=== PATIENT | female | born 1990 | race Caucasian/White ===

== ENCOUNTER 2017-03-08 08:46 | Outpatient (RCR) | payer OTHER | END 2017-03-09 | LOC: M PT 08:46 | PROVIDERS: ATTEND Physician Assistant | DX: Z51.89 Encounter for other specified aftercare (principal); M25.572 Pain in left ankle and joints of left foot ==

== ENCOUNTER 2017-04-03 08:51 | Outpatient (RCR) | payer OTHER ==
[2017-04-04] MEDS ORDERED: VIGA0.02 (09:25)
[2017-04-04] MEDS ORDERED: Biotin (09:25)
[2017-04-04] MEDS ORDERED: NEXP1IMP (09:25)
[2017-04-04] MEDS ORDERED: ERYT5OPO OS (09:57)
[2017-04-04] MEDS ORDERED: KETO0.5S15 OD (09:58)
== END 2017-04-08 ==
LOC: M PT 08:51
PROVIDERS: ATTEND Physician Assistant
DX: Z51.89 Encounter for other specified aftercare (principal); M25.572 Pain in left ankle and joints of left foot

== ENCOUNTER 2017-04-04 09:16 | Emergency (ER) | payer OTHER ==
[~2017-04-04] VITALS: Ht 172.7 cm; Wt 64.6 kg
[2017-04-04 09:16] VITALS: BP 106/76
[2017-04-04] MEDS ORDERED: VIGA0.02 (09:25)
[2017-04-04] MEDS ORDERED: Biotin (09:25)
[2017-04-04] MEDS ORDERED: NEXP1IMP (09:25)
[2017-04-04] MEDS ORDERED: TETRACAINE 0.5% OPHTH SOLN 4ML OS ONE (09:45)
[2017-04-04] MEDS ORDERED: FLUORESCEIN OPHTH 1 MG STRIP OS ONE (09:45)
[2017-04-04] MEDS ORDERED: ERYT5OPO OS (09:57)
[2017-04-04] MEDS ORDERED: KETO0.5S15 OD (09:58)
[2017-04-04] MEDS ORDERED: KETOROLAC 0.5% OPHTH SOLN OS ONE (10:00)
[2017-04-04] MEDS ORDERED: ERYTHROMYCIN OPHTH OINT OS ONE (10:00)
== END 2017-04-04 10:13 | disposition home or self-care (01) ==
LOC: M ED 09:16
DX: S05.02XA Injury of conjunctiva and corneal abrasion without foreign body, left eye, initial encounter (principal); X58.XXXA Exposure to other specified factors, initial encounter; Y92.099 Unspecified place in other non-institutional residence as the place of occurrence of the external cause; Y93.9 Activity, unspecified; Y99.9 Unspecified external cause status; Z79.899 Other long term (current) drug therapy; Z88.8 Allergy status to other drugs, medicaments and biological substances; Z88.4 Allergy status to anesthetic agent; Z91.040 Latex allergy status

== ENCOUNTER → 2017-07-21 | Outpatient (CLI) | payer OTHER | LOC: M WUC 11:19 | DX: M25.572 Pain in left ankle and joints of left foot (principal) | CPT/HCPCS: 73610 ==